=== PATIENT | female | born 1995 ===

== ENCOUNTER → 2020-11-25 | Outpatient (CLI) | payer OTHER | END | disposition home or self-care (01) | LOC: PPH VACUNA | DX: Z23 Encounter for immunization (principal) ==

== ENCOUNTER 2020-12-16 08:40 | Outpatient (CLI) | payer OTHER | END 2020-12-16 08:45 | disposition home or self-care (01) | LOC: PPH VACUNA 08:40 | DX: Z23 Encounter for immunization (principal) ==